=== PATIENT | female | born 1965 | race African-American/Black ===

== ENCOUNTER 2023-06-30 13:10 | Inpatient (IN) | payer OTHER ==
[~2023-06-30] VITALS: Ht 167.6 cm; Wt 62.6 kg
[2023-06-30] MEDS: MORPHINE SULFATE 4 MG/ML CPJ (NOT FOR IM USE) IV STA ×2 (13:23→13:26)
[2023-06-30] MEDS: ONDANSETRON HCL 4MG/2ML INJ IV STA ×2 (13:23→13:26)
[2023-06-30] MEDS ORDERED: SODIUM CHLORIDE 0.9% 1,000 ML IV ONE (13:30)
[2023-06-30 13:43] LABS: BASOPHILS % 0.4 % (0.0-2.0); EOSINOPHILS % 0.1 % (0.0-5.0); HEMATOCRIT. 38.7 % (36.0-48.0); HEMOGLOBIN. 12.6 g/dL (12.0-16.0); LYMPHOCYTES % 18.8 % (20.0-50.0); MEAN CORPUSCULAR HEMOGLOBIN 28.2 pg (28.0-32.0); MEAN CORPUSCULAR HGB CONC 32.6 g/dL (31.0-37.0); MEAN CORPUSCULAR VOLUME 86.5 fL (81.0-99.0); MEAN PLATELET VOLUME 8.5 fl (7.4-10.4); NEUTROPHILS % 74.7 % (40.0-76.0); PLATELET 313 x1000/uL (130-400); RED BLOOD CELL COUNT 4.48 mill/uL (4.2-5.4); RED CELL DISTRIBUTION WIDTH 12.9 % (11.6-14.6); WHITE BLOOD COUNT 11.5 x1000/uL (4.5-11.0)
[2023-06-30 13:50] LABS: CHLORIDE 110 mEq/L (98-107); INDEX HEMOLYSI 1 (1-3); INDEX ICTERIC 1 (1-4); INDEX LIPEMIC 1 (1-3); POTASSIUM 3.8 mEq/L (3.5-5.1); SODIUM 140 mEq/L (136-145)
[2023-06-30 13:55] LABS: D-DIMER 3.36 mg/L FEU (<0.50); INR 1.3; PARTIAL THROMBOPLASTIN TIME 28.1 sec (23.4-31.0); PROTHROMBIN TIME 13.9 sec (9.6-11.0)
[2023-06-30 14:00] LABS: BILIRUBIN TOTAL 0.6 mg/dL (0.1-1.0); NT PRO B-TYPE NATRIURETIC PEP 26669 pg/mL (5-125)
[2023-06-30 14:12] LABS: TROPONIN I HIGH SENSITIVITY 3792 ng/L (<54)
[2023-06-30 14:15] LABS: ALANINE AMINOTRANSFERASE 59 IU/L (13-61); ALBUMIN 2.9 g/dL (3.4-5.0); ASPARTATE AMINOTRANSFERASE 42 IU/L (15-37); CALCIUM 8.4 mg/dL (8.5-10.1); CARBON DIOXIDE 19 mEq/L (21-32); CREATININE 0.8 mg/dL (0.6-1.3); GLUCOSE 158 mg/dL (70-105); PROTEIN TOTAL 6.5 g/dL (6.0-8.3); UREA NITROGEN BLOOD 17 mg/dL (7-21)
[2023-06-30] MEDS ORDERED: LIDOCAINE HCL 1% 10 MG/ML 10ML VIAL ONE (14:57)
[2023-06-30] MEDS ORDERED: IODIXANOL 320MG/ML 100 ML BOTTLE IV ONE ×2 (14:57→15:52)
[2023-06-30] MEDS ORDERED: HEPARIN 1000 UNITS/ML 10ML ONE (14:57)
[2023-06-30] MEDS ORDERED: FENTANYL CITRATE/PF 50MCG/ML 2ML VIAL ONE (15:17)
[2023-06-30] MEDS ORDERED: MIDAZOLAM HCL 2 MG/2 ML VIAL ONE (15:17)
[2023-06-30] MEDS ORDERED: DIPHENHYDRAMINE 50MG/ML VIAL ONE (15:17)
[2023-06-30] MEDS ORDERED: VERAPAMIL HCL 2.5 MG/1 ML 2ML VIAL IV ONE (15:26)
[2023-06-30] MEDS ORDERED: IOHEXOL-350 100 ML BOTTLE ONE (16:09)
[2023-06-30] MEDS ORDERED: ACETAMINOPHEN 325MG TABLET PO PRN ×3 (16:30→17:00)
[2023-06-30] MEDS ORDERED: ATROPINE SULFATE 1MG/10ML SYR IV PRN (16:30)
[2023-06-30] MEDS ORDERED: CLONIDINE 0.1MG TABLET PO PRN (17:00)
[2023-06-30] MEDS ORDERED: MAGNESIUM/ALUMINUM HYDROXIDE/SIMETHICONE 30ML UDC PO PRN (17:00)
[2023-06-30] MEDS ORDERED: NA PHOS,M-B/NA PHOS,DI-BA ENEMA 118ML PR PRN (17:00)
[2023-06-30] MEDS ORDERED: DOCUSATE SODIUM 100MG CAPSULE PO PRN (17:00)
[2023-06-30] MEDS ORDERED: HYDROCODONE/ACETAMINOPHEN 5/325MG TABLET PO PRN (17:00)
[2023-06-30] MEDS ORDERED: ONDANSETRON HCL 4MG/2ML INJ IV PRN (17:00)
[2023-06-30] MEDS ORDERED: IPRATROPIUM/ALBUTEROL 0.5-3(2.5)MG/3ML NEB HHN PRN (17:00)
[2023-06-30] MEDS ORDERED: NALOXONE HCL 0.4MG/ML VIAL IV PRN (17:15)
[2023-06-30] MEDS ORDERED: FAMOTIDINE 20MG TABLET PO PRN (18:00)
[2023-06-30] MEDS ORDERED: HEPARIN 25,000 UNITS PREMIX 250 ML IV PRN ×3 (18:45→19:15)
[2023-06-30] MEDS ORDERED: HEPARIN 25,000 UNITS PREMIX 250 ML IV SCH (19:15)
[2023-06-30 20:00] VITALS: BP 129/90; PULSE 97; RESP 20; TEMP 97.6
[2023-06-30 21:00] VITALS: BP 146/102; PULSE 100; RESP 20
[2023-06-30 22:00] VITALS: BP 117/84; PULSE 100; RESP 20
[2023-06-30] MEDS: HEPARIN 25,000 UNITS PREMIX 250 ML IV SCH (22:03)
[2023-06-30 22:10] LABS: TROPONIN I HIGH SENSITIVITY 3624 ng/L (<54)
[2023-06-30 22:11] LABS: LACTIC ACID 2.7 mmol/L (0.4-2.0)
[2023-06-30 23:00] VITALS: BP 113/75; RESP 14
[2023-07-01] VITALS (23 sets, daily range): BP systolic 100–138; BP diastolic 53–96; PULSE 74–99; RESP 14–32; TEMP 98.1–98.4
[2023-07-01 00:03] LABS: CREATINE KINASE MB FRACTION 1.7 ng/mL (0.5-3.6)
[2023-07-01] MEDS ORDERED: NITROGLYCERIN 0.4MG TABLET SL SL PRN (00:30)
[2023-07-01] MEDS ORDERED: ACETAMINOPHEN 325MG TABLET PO PRN (00:30)
[2023-07-01] MEDS ORDERED: HEPARIN BOLUS PRN aPTT <30 IV (05:00)
[2023-07-01 05:42] LABS: INDEX HEMOLYSI 1 (1-3)
[2023-07-01 05:45] LABS: AMMONIA 32 uMol/L (<32)
[2023-07-01 05:57] LABS: CHLORIDE 112 mEq/L (98-107); INDEX HEMOLYSI 1 (1-3); INDEX ICTERIC 1 (1-4); INDEX LIPEMIC 1 (1-3); POTASSIUM 3.5 mEq/L (3.5-5.1); SODIUM 140 mEq/L (136-145)
[2023-07-01 05:59] LABS: BASOPHILS % 0.5 % (0.0-2.0); EOSINOPHILS % 0.2 % (0.0-5.0); HEMATOCRIT. 34.2 % (36.0-48.0); HEMOGLOBIN. 11.5 g/dL (12.0-16.0); LYMPHOCYTES % 30.7 % (20.0-50.0); MEAN CORPUSCULAR HEMOGLOBIN 29.1 pg (28.0-32.0); MEAN CORPUSCULAR HGB CONC 33.8 g/dL (31.0-37.0); MEAN CORPUSCULAR VOLUME 86.1 fL (81.0-99.0); MEAN PLATELET VOLUME 8.7 fl (7.4-10.4); MONOCYTES % 7.4 % (2.0-8.0); NEUTROPHILS % 61.2 % (40.0-76.0); PLATELET 285 x1000/uL (130-400); RED BLOOD CELL COUNT 3.97 mill/uL (4.2-5.4); WHITE BLOOD COUNT 10.5 x1000/uL (4.5-11.0)
[2023-07-01 06:10] LABS: ALANINE AMINOTRANSFERASE 70 IU/L (13-61); ALBUMIN 2.7 g/dL (3.4-5.0); ASPARTATE AMINOTRANSFERASE 53 IU/L (15-37); BILIRUBIN TOTAL 0.7 mg/dL (0.1-1.0); CALCIUM 8.1 mg/dL (8.5-10.1); CARBON DIOXIDE 19 mEq/L (21-32); CHOLESTEROL 111 mg/dL (<200); CREATINE KINASE 73 IU/L (26-192); CREATINE KINASE MB FRACTION 1.7 ng/mL (0.5-3.6); CREATININE 0.7 mg/dL (0.6-1.3); GLUCOSE 100 mg/dL (70-105); HDL CHOLESTEROL 28 mg/dL (40-59); LDL CHOLESTEROL 69 mg/dL (5-100); PROTEIN TOTAL 5.8 g/dL (6.0-8.3); T4 FREE 1.45 ng/dL (0.76-1.46); TRIGLYCERIDE 109 mg/dL (0-150); UREA NITROGEN BLOOD 20 mg/dL (7-21)
[2023-07-01 06:26] LABS: TROPONIN I HIGH SENSITIVITY 3736 ng/L (<54)
[2023-07-01] MEDS: HEPARIN BOLUS PRN aPTT 30-44 IV (07:01)
[2023-07-01 08:34] LABS: BG BASE EXCESS -5.1 mmol/L (-2.0-2.0); BG CARBOXYHEMOGLOBIN 0.5 % (0.5-1.5); BG DEOXYHEMOGLOBIN 3.6 % (0.0-5.0); BG FRACTION INSPIRED OXYGEN 28; BG HCO3 ACT 16.2 mmol/L (22.0-26.0); BG METHEMOGLOBIN 0.3 % (0.0-1.5); BG OXYGEN SATURATION 96.4 % (92.0-98.5); BG OXYHEMOGLOBIN 95.6 % (94.0-97.0); BG PCO2 21.1 mmHg (35.0-45.0); BG PH 7.502 (7.350-7.450); BG PO2 81.3 mmHg (75.0-100.0); BG SAMPLE SITE RIGHT RADIAL; BG TOTAL HEMOGLOBIN 12.1 g/dL (12.0-18.0); BG VENT MODE NASAL CANNULA
[2023-07-01] MEDS ORDERED: ASPIRIN 81MG TABLET PO SCH (09:00)
[2023-07-01] MEDS: METOPROLOL TARTRATE 25MG TABLET PO SCH ×2 (09:32→20:56)
[2023-07-01] MEDS ORDERED: LORAZEPAM 2MG/ML CPJ IV PRN (10:30)
[2023-07-01] MEDS ORDERED: FUROSEMIDE 20MG/2ML VIAL IVP NR (10:30)
[2023-07-01 12:58] LABS: CLARITY URINE CLEAR (CLEAR); COLOR URINE YELLOW (YELLOW); GLUCOSE URINE NEGATIVE (NEGATIVE); KETONES URINE NEGATIVE (NEGATIVE); LEUKOCYTE ESTERASE URINE NEGATIVE (NEGATIVE); NITRITE URINE NEGATIVE (NEGATIVE); OCCULT BLOOD URINE TRACE (NEGATIVE); PH URINE 5.5 (4.5-8.0); PROTEIN URINE TRACE (NEGATIVE); SPECIFIC GRAVITY URINE 1.053 (1.005-1.030)
[2023-07-01 13:22] LABS: BACTERIA URINE NONE SEEN; RBC URINE 0-2 /hpf (0-2); SQUAMOUS EPITHELIAL CELL URINE FEW /lpf (RARE/1+); WBC URINE 0-2 /hpf (0-2); YEAST URINE NONE SEEN
[2023-07-01 13:44] LABS: *AMPHETAMINES SCREEN URINE NEGATIVE (NEGATIVE); *BARBITURATES SCREEN URINE NEGATIVE (NEGATIVE); *BENZODIAZEPINES SCREEN URINE PRESUMTIVE POSITIVE (NEGATIVE); *COCAINE SCREEN URINE NEGATIVE (NEGATIVE); CANNABINOID URINE SCREEN NEGATIVE (NEGATIVE); ECSTASY MDMA SCREEN URINE NEGATIVE (NEGATIVE); METHADONE URINE SCREEN NEGATIVE (NEGATIVE); OPIATES URINE SCREEN NEGATIVE (NEGATIVE); PHENCYCLIDINE URINE SCREEN NEGATIVE (NEGATIVE)
[2023-07-01 18:19] LABS: TROPONIN I HIGH SENSITIVITY 3763 ng/L (<54)
[2023-07-02] VITALS (10 sets, daily range): BP systolic 116–161; BP diastolic 66–90; PULSE 75–87; RESP 24–29; TEMP 97.9–98.7; O2SAT 100
[2023-07-02] MEDS: HEPARIN 25,000 UNITS PREMIX 250 ML IV SCH (01:14)
[2023-07-02] MEDS: HEPARIN BOLUS PRN aPTT 30-44 IV (01:43)
[2023-07-02 05:53] LABS: BASOPHILS % 0.2 % (0.0-2.0); HEMATOCRIT. 37.1 % (36.0-48.0); HEMOGLOBIN. 11.9 g/dL (12.0-16.0); LYMPHOCYTES % 22.8 % (20.0-50.0); MEAN CORPUSCULAR HEMOGLOBIN 28.8 pg (28.0-32.0); MEAN CORPUSCULAR HGB CONC 32.2 g/dL (31.0-37.0); MEAN CORPUSCULAR VOLUME 89.3 fL (81.0-99.0); MEAN PLATELET VOLUME 8.7 fl (7.4-10.4); MONOCYTES % 6.4 % (2.0-8.0); NEUTROPHILS % 70.6 % (40.0-76.0); PLATELET 294 x1000/uL (130-400); RED BLOOD CELL COUNT 4.15 mill/uL (4.2-5.4); RED CELL DISTRIBUTION WIDTH 12.8 % (11.6-14.6); WHITE BLOOD COUNT 9.8 x1000/uL (4.5-11.0)
[2023-07-02 06:05] LABS: CHLORIDE 109 mEq/L (98-107); INDEX HEMOLYSI 1 (1-3); INDEX ICTERIC 1 (1-4); INDEX LIPEMIC 1 (1-3); POTASSIUM 3.8 mEq/L (3.5-5.1); SODIUM 141 mEq/L (136-145)
[2023-07-02 06:16] LABS: CALCIUM 8.3 mg/dL (8.5-10.1); CARBON DIOXIDE 21 mEq/L (21-32); CREATININE 0.8 mg/dL (0.6-1.3); GLUCOSE 125 mg/dL (70-105); IRON 40 ug/dL (50-175); TOTAL IRON BINDING CAPACITY 277 ug/dL (250-450); UREA NITROGEN BLOOD 23 mg/dL (7-21)
[2023-07-02 06:34] LABS: DIFFERENTIAL COMMENT 1
[2023-07-02 07:18] LABS: TROPONIN I HIGH SENSITIVITY 3007 ng/L (<54)
[2023-07-02] MEDS ORDERED: DOCUSATE SODIUM 100MG CAPSULE PO SCH (21:00)
[2023-07-02] MEDS ORDERED: CHLORHEXIDINE GLUCONATE 4% EXTERNAL USE TOP SCH (21:00)
[2023-07-02] MEDS ORDERED: ASCORBIC ACID 500 MG TABLET PO SCH (21:00)
[2023-07-02] MEDS ORDERED: ALLOPURINOL 300 MG TABLET PO SCH (21:00)
[2023-07-02] MEDS ORDERED: BISACODYL 10MG SUPP PR PRN (21:00)
[2023-07-03] MEDS ORDERED: CHLORHEXIDINE GLUCONATE 4% EXTERNAL USE TOP SCH (09:00)
== END 2023-07-02 08:05 | disposition short-term general hospital (02) | DRG 250 ==
LOC: ER 13:47 → EDBEDREQTM 14:58 → EDBEDREQ 14:58 → SUPCPDRO 15:06 → EDBEDREQ 15:42 → CCL 17:54 → CVICU 18:33
PROVIDERS: ADMIT Internal Medicine; ATTEND Internal Medicine
PROC: B2111ZZ Fluoroscopy of Multiple Coronary Arteries using Low Osmolar Contrast (ICD-10-PCS; principal; 2023-06-30)
PROC: 02703ZZ Dilation of Coronary Artery, One Artery, Percutaneous Approach (ICD-10-PCS; 2023-06-30)
DX: I21.4 Non-ST elevation (NSTEMI) myocardial infarction (principal); I50.21 Acute systolic (congestive) heart failure; E87.20 Acidosis, unspecified; E44.0 Moderate protein-calorie malnutrition; D18.03 Hemangioma of intra-abdominal structures; I25.10 Atherosclerotic heart disease of native coronary artery without angina pectoris; N20.0 Calculus of kidney; F17.210 Nicotine dependence, cigarettes, uncomplicated; K76.0 Fatty (change of) liver, not elsewhere classified; K21.9 Gastro-esophageal reflux disease without esophagitis; I11.0 Hypertensive heart disease with heart failure; R74.01 Elevation of levels of liver transaminase levels; I71.23 Aneurysm of the descending thoracic aorta, without rupture; I27.21 Secondary pulmonary arterial hypertension; F41.9 Anxiety disorder, unspecified; Z85.3 Personal history of malignant neoplasm of breast; Z92.21 Personal history of antineoplastic chemotherapy; Z68.22 Body mass index [BMI] 22.0-22.9, adult
CPT/HCPCS: 36415; 36600; 71045; 71275; 74177; 80048; 80053; 80061; 80305; 81003; 82140; 82375; 82550; 82553; 82728; 82805; 83540; 83550; 83605; 83880; 84439; 84443; 84484; 85025; 85347; 85379; 86850; 86900; 86920; 93005; 93306; 93880; 93970; 99291; J1200; J1644; J1940; J2060; J2250; J2270; J2405; J3010; J3490; J7030; Q9967